=== PATIENT | male | born 1995 | race Hispanic/Latino ===

== ENCOUNTER 2020-06-20 10:49 | Emergency (ER) | payer SELFPAY ==
[~2020-06-20] VITALS: Ht 177.8 cm; Wt 100.0 kg
[2020-06-20] MEDS ORDERED: CLINDAMYCIN300 M1 PO (11:38)
[2020-06-20 12:14] VITALS: BP 137/89
== END 2020-06-20 12:14 | disposition home or self-care (01) | DRG 159 ==
LOC: ED 10:49
DX: K08.89 Other specified disorders of teeth and supporting structures (principal)

== ENCOUNTER 2020-08-18 17:42 | Emergency (ER) | payer SELFPAY ==
[~2020-08-18] VITALS: Ht 175.3 cm; Wt 85.5 kg
[~2020-08-18 17:42] MED LIST: CLINDAMYCIN300 M1 PO
[2020-08-18] MEDS ORDERED: AMOX/K CLAV875 M1 PO (19:17)
[2020-08-18 19:25] VITALS: BP 121/70
== END 2020-08-18 19:25 | disposition home or self-care (01) | DRG 159 ==
LOC: ED 17:42
PROC: 0C953ZZ Drainage of Upper Gingiva, Percutaneous Approach (ICD-10-PCS; principal; 2020-08-18)
DX: K04.7 Periapical abscess without sinus (principal)